=== PATIENT | male | born 1970 | race Two or more races ===

== ENCOUNTER 2017-08-13 17:50 | Emergency (ER) | payer OTHER ==
[~2017-08-13] VITALS: Ht 185.4 cm; Wt 11.8 kg
[2017-08-13 19:15] VITALS: BP 135/89
--- NOTE | 2017-08-13 20:49 | NUR ---
patient came initially for high blood pressure, but as seen in triage, blood pressure is not "too high." patient then changed his complaints too tingling sensations to all extremtities. patient called again for bed number, no answer and patient not seen in the waiting room.
== END 2017-08-13 20:51 | disposition left against medical advice (07) ==
LOC: ER 17:53
DX: Z53.21 Procedure and treatment not carried out due to patient leaving prior to being seen by health care provider (principal)
CPT/HCPCS: A4606; Z7610